=== PATIENT | female | born 1990 | race Caucasian/White ===

== ENCOUNTER 2020-02-25 22:21 | Emergency (ER) | payer BC, SELFPAY ==
[2020-02-25] VITALS (7 sets, daily range): BP systolic 105–135; BP diastolic 67–77; PULSE 63–75; RESP 18–27; TEMP 36.6; O2SAT 94–100
--- NOTE | ~2020-02-25 | CT_ITS ---
EXAMINATION: CT abdomen pelvis w con DATE: 02/26/2020 00:02 INDICATION: Epigastric and right upper quadrant abdominal pain. TECHNIQUE: Computed tomography (CT) of the abdomen and pelvis was performed with 100 mL Omnipaque 350 intravenous contrast. Automated exposure control and iterative reconstruction technique were employe d. The dose-length product was 372.24 mGy-cm. COMPARISON: CT abdomen and pelvis 07/22/2012 FINDINGS: The visualized portions of the lung bases demonstrate mild atelectasis. No pleural effusion . The heart size is normal. No pericardial effusion. The liver and spleen are normal. The gallbladder is normal in size. Gallbladder wall thickening is noted. The pancreas, adrenal glands, and kidneys a re normal. There are no dilated loops of bowel. The appendix is normal. There are no pathologically e nlarged lymph nodes. There is trace pelvic ascites. There is mild lumbar spondylosis. IMPRESSION: 1. Gallbladder wall thickening again seen. This finding may be seen with interstitial edema, chronic liver disease, or acute or chronic cholecystitis. Reviewed, dictated and finalized at location A. [facility] IMPRESSION: 1. Gallbladder wall thickening again seen. This finding may be seen with inters titial edema, chronic liver disease, or acute or chronic cholecystitis.
[2020-02-25] MEDS: fentaNYL CITRATE INJ (*CRX) 100 MCG/2 ML VIAL 50 MCG IV PUSH (22:33)
[2020-02-25] MEDS: ONDANSETRON INJ 4 MG/2 ML VIAL IV PUSH (22:33)
[2020-02-25 22:43] LABS: Basophils Percent Auto 0.1 % (0.2-1.2); Hematocrit 36.9 % (37.0-47.0); Hemoglobin 12.8 g/dL (12.0-15.0); Immature Granulocyte Absolute 0.01 K/mm3 (0.00-0.031); Immature Granulocyte Percent A 0.1 % (0-0.5); Lymphocytes Absolute Auto 3.29 K/mm3 (0.9-3.2); Lymphocytes Percent Auto 47.6 % (18.3-44.2); Mean Corpuscular HGB Conc 34.7 g/dl (32-36); Mean Corpuscular Hemoglobin 29.2 pg (26-34); Mean Corpuscular Volume 84.2 fl (80-100); Mean Platelet Volume 9.7 fl (7.4-10.4); Monocytes Absolute Auto 0.6 K/mm3 (0.1-0.6); Monocytes Percent Auto 8.8 % (2.6-8.5); Neutrophils Percent Auto 43.4 % (45.5-73.1); Platelet Count Result 266 k/mm3 (150-375); Red Blood Count 4.38 M/mm3 (4.2-5.4); Red Cell Distribution Width 12.5 % (11.5-14.5); White Blood Count 6.9 K/mm3 (4.5-10.0)
[2020-02-25 22:56] LABS: Alanine Aminotransferase 30 U/L (4-35); Albumin Level 3.8 g/dL (3.5-5.1); Alkaline Phosphatase 66 U/L (38-126); Anion Gap 5 mmol/L (8-16); Aspartate Amino Transferase 56 U/L (14-36); Bilirubin,Total 0.3 mg/dL (0.2-1.3); Blood Urea Nitrogen 11 mg/dL (7-17); Calcium 8.9 mg/dL (8.4-10.2); Carbon Dioxide 27 mmol/L (22-30); Chloride 108 mmol/L (98-107); Estimated CRCL calculation 134 ml/min; Estimated Glomerular Filt Rate > 60; Glucose 80 mg/dL (65-105); Lipase 86 U/L (23-300); Potassium 3.8 mmol/L (3.4-5.0); Sodium 140 mmol/L (137-145)
[2020-02-25 23:10] LABS: Add Urine Microscopic? YES; Appearance Urine Clear (Clear); Bacteria Urine Trace /hpf; Bilirubin Urine Negative (Negative); Blood Urine 3+ (Negative); Color Urine Yellow (Yellow); Glucose Urine UA Negative (Negative); Ketones Urine Negative (Negative); Leukocyte Esterase Ur Trace LEU/UL (Negative); Mucus Urine Rare /lpf; Nitrate Urine Negative (Negative); Protein Urine Negative (Negative); Specific Grav Ur 1.013 (1.001-1.035); Squamous Epithelial Cell Urine Occasional /hpf (Few); Urobilinogen Urine Negative mg/dL (<2.0)
--- NOTE | 2020-02-25 23:19 | PC.NURSE ---
report given to Kimber RUTH. urine collected. bedside preg done. patient waiting for CT.
--- NOTE | 2020-02-26 00:34 | ED.ABDPAIN ---
HPI - Abdominal Pain General Chief Complaint: Abdominal Pain Stated Complaint: Abd pain, back pain, vomiting Time Seen by Provider: 02/25/20 22:23 History of Present Illness HPI narrative: Patient is a 29-year-old female who presents to the ER with sudden onset upper abdominal pain. Woke her from sleep. Radiates to her back. Endorses nausea and vomiting. No fevers or chills or sweats. Has not had similar symptoms before. No urinary symptoms. No diarrhea. Related Data Home Medications Medication Instructions Recorded Confirmed drospirenone 0.25 mg-estradiol 0.5 PO 03/17/19 mg tablet Allergies Allergy/AdvReac Type Severity Reaction Status Date / Time Cephalosporins Allergy Unknown Hives Verified 02/25/20 22:43 latex Allergy Unknown Hives Verified 02/25/20 22:43 morphine Allergy Unknown Unknown Verified 02/25/20 22:43 Review of Systems Review of Systems: All systems reviewed & are unremarkable except as noted in HPI and below Constitutional: Constitutional: Denies chills, Denies fever(s) and Denies weakness Cardiovascular: Cardiovascular: Denies chest pain and Denies radiating jaw, neck or arm pain Gastrointestinal: Gastrointestinal: Reports abdominal pain, Denies diarrhea, Reports nausea and Reports vomiting Genitourinary: Genitourinary: Denies hematuria, Denies nocturia, Denies dysuria and Denies flank pain Musculoskeletal: Musculoskeletal: Reports back pain and Denies muscle cramps PMFSH Past Medical History Medical History (Updated 02/26/20 @ 01:08 by Johnie Johnson MD) Anxiety Depression Surgical History Surgical History (Updated 02/26/20 @ 00:36 by Johnie Jhonson MD) Hx of tonsillectomy Family History Family History Other Diabetes mellitus Hypertension Social History Social History Smoking status: Former smoker Second hand tobacco smoke exposure: Yes Smoking end date: 03/15/13 Alcohol intake: current Exam Narrative: Exam Narrative: GENERAL: Uncomfortable-appearing, well-nourished, and in no acute distress. HEAD: Normocephalic, atraumatic. CHEST: Clear to auscultation. No respiratory distress. HEART: Regular rate and rhythm. Normal peripheral pulses. ABDOMEN: Soft, tender to palpation in epigastrium right upper quadrant with some guarding right upper quadrant, nondistended. EXTREMITIES: Normal range of motion. No edema. SKIN: Warm, dry, no rash. NEURO:Alert and oriented x3. PSYCH: Normal mood and affect. Course Course Emergency Course: Informed of results. Pain free. Discussed with Dr. Cid. F/u outpt with pain/nausea meds, no abx, low fat diet. Pt verbalized understanding. Vital Signs Vital signs: Vital Signs Temperature 97.9 F 02/25/20 22:25 Pulse Rate 75 02/25/20 22:25 Respiratory Rate 18 02/25/20 22:25 Blood Pressure 135/77 02/25/20 22:25 Pulse Oximetry 99 02/25/20 22:25 Temperature 97.9 F 02/25/20 22:25 Pulse Rate 63 02/25/20 22:46 Respiratory Rate 25 H 02/25/20 22:46 Blood Pressure 105/67 02/25/20 23:16 Pulse Oximetry 100 02/25/20 23:16 MDM - Abdominal Pain Lab Data Result diagrams: 02/25/20 22:36 02/25/20 22:36 Labs: Lab Results 02/25/20 02/25/20 02/25/20 Range/Units 22:36 22:36 23:00 WBC 6.9 (4.5-10.0) K/mm3 RBC 4.38 (4.2-5.4) M/mm3 Hgb 12.8 (12.0-15.0) g/dL Hct 36.9 L (37.0-47.0) % MCV 84.2 (80-100) fl MCH 29.2 (26-34) pg MCHC 34.7 (32-36) g/dl RDW 12.5 (11.5-14.5) % Plt Count 266 (150-375) k/mm3 MPV 9.7 (7.4-10.4) fl Immature Gran % (Auto) 0.1 (0-0.5) % Neut % (Auto) 43.4 L (45.5-73.1) % Lymph % (Auto) 47.6 H (18.3-44.2) % [place] % (Auto) 8.8 H (2.6-8.5) % Eos % (Auto) 0.0 (0-4.4) % Baso % (Auto) 0.1 L (0.2-1.2) % Lymph # (Auto) 3.29 H (0.9-3.2) K/mm3 [place]
[2020-02-26 01:25] VITALS: BP 119/71; PULSE 65; RESP 16; O2SAT 100
== END 2020-02-26 01:25 | disposition home or self-care (01) ==
PROVIDERS: Emergency Provider Emergency Medicine; PCP Family Medicine
DX: K80.50 Calculus of bile duct without cholangitis or cholecystitis without obstruction (principal); Z87.891 Personal history of nicotine dependence
CPT/HCPCS: 36415; 74177; 80053; 81001; 81025; 83690; 85025; 87086; 87088; 96374; 96375; 99284; J2405; J3010; Q9967

== ENCOUNTER → 2020-03-06 07:44 | Outpatient (CLI) | payer BC, SELFPAY ==
--- NOTE | ~2020-03-06 | US_ITS ---
EXAMINATION: US abdomen limited EXAM DATE: 03/06/2020 08:19 INDICATION: K81.0 - Acute cholecystitis . TECHNIQUE: Multiple grayscale and Doppler images of the abdomen right upper quadrant were obtained (b y a technologist who performed the scan) and subsequently reviewed. There is no prior study for robinson tinajero. FINDINGS: The pancreatic head and body are normal in appearance. The pancreatic tail is not visualized. The l iver has normal echogenicity and contour. There are no focal liver lesions identified. There is no evidence of intrahepatic biliary duct dilation. Portal venous flow was seen in the hepatopedal, nor mal direction and has normal Doppler waveform. No right-sided hydronephrosis. Common bile duct measures 4 mm, which is normal. The gallbladder wall is normal in thickness, with ex pected amount of distention. No sonographic evidence of pericholecystic fluid. Multiple small galls tones. Technologist performing exam reports patient did not demonstrate sonographic Clark's sign. Please note that this sign is less reliable in patients who have received pain medication. IMPRESSION: Cholelithiasis. Reviewed, dictated and finalized at location B. [facility] IMPRESSION: Cholelithiasis.
== END ==
PROVIDERS: PCP Family Medicine; Visit Provider Surgery
DX: K80.50 Calculus of bile duct without cholangitis or cholecystitis without obstruction (principal)
CPT/HCPCS: 76705

== ENCOUNTER 2020-03-11 08:22 | Outpatient (CLI) | payer BC, SELFPAY ==
[2020-03-11 08:59] LABS: Alanine Aminotransferase 25 U/L (4-35); Alkaline Phosphatase 60 U/L (38-126); Amylase 73 U/L (30-110); Anion Gap 8 mmol/L (8-16); Aspartate Amino Transferase 26 U/L (14-36); Bilirubin,Total 0.5 mg/dL (0.2-1.3); Blood Urea Nitrogen 10 mg/dL (7-17); Calcium 8.6 mg/dL (8.4-10.2); Carbon Dioxide 25 mmol/L (22-30); Chloride 105 mmol/L (98-107); Estimated Glomerular Filt Rate > 60; Glucose 92 mg/dL (65-105); Lipase 58 U/L (23-300); Potassium 4.1 mmol/L (3.4-5.0); Sodium 138 mmol/L (137-145)
== END 2020-03-11 08:23 | disposition home or self-care (01) ==
LOC: ANHSURGERY 08:24
PROVIDERS: PCP Family Medicine; Visit Provider Surgery
DX: Z01.812 Encounter for preprocedural laboratory examination (principal); K81.0 Acute cholecystitis
CPT/HCPCS: 36415; 80053; 82150; 82248; 83690; 86850; 86900; 86901

== ENCOUNTER 2020-03-15 00:49 | Outpatient (CLI) | payer BC, SELFPAY ==
[2020-03-15 18:38] LABS: SARS-CoV-2 RNA PCR Negative
== END 2020-03-15 00:50 | disposition home or self-care (01) ==
LOC: ANHCOVIDDT 00:49
PROVIDERS: PCP Family Medicine; Visit Provider Surgery
DX: Z01.818 Encounter for other preprocedural examination (principal); Z20.828 Contact with and (suspected) exposure to other viral communicable diseases
CPT/HCPCS: C9803; U0003

== ENCOUNTER 2020-03-18 01:31 | Day surgery (SDC) | payer BC, SELFPAY ==
[2020-03-05 10:13] VITALS: BMI 28.7
[2020-03-18] VITALS (8 sets, daily range): BP systolic 97–127; BP diastolic 54–75; PULSE 56–92; RESP 14–16; TEMP 36.2–36.6; O2SAT 99–100; BMI 28.4
[2020-03-18] MEDS: LACTATED RINGERS 1,000 ML 30 ML IV CONT ×2 (07:21→10:14)
[2020-03-18] MEDS: ACETAMINOPHEN 500 MG TABLET 1000 MG PO (07:38)
[2020-03-18] MEDS: KETOROLAC 15 MG/ML VIAL (*BKC) IV PUSH (07:38)
--- NOTE | 2020-03-18 07:52 | WPDANESEPPF ---
Anes - Initial Pre Proc Eval Procedure: Operation Date: 03/18/20 09:00 Proposed Procedures p Laparoscopic Cholecystectomy Possible Open - Ignacio Cid DO Date/Time: 03/18/20 07:52 Surgeon: Ignacio Cid DO Pre Op Diagnosis: Acute Cholecystitis Patient Data Age: 29 Gender: F Height: 5 ft 2 in Weight: 70.6 kg Last Vital Signs Temp 36.6 C 03/18/20 07:48 Pulse 92 03/18/20 07:48 Resp 16 03/18/20 07:48 BP 99/66 L 03/18/20 07:48 Pulse Ox 100 03/18/20 07:48 Allergies Allergy/AdvReac Type Severity Reaction Status Date / Time latex Allergy Severe Swelling Verified 03/18/20 07:23 of Lip/Tongue/Throat morphine Allergy Unknown Unknown Verified 03/18/20 07:23 Home Medications Medication Instructions Recorded Confirmed Type drospirenone 0.25 mg-estradiol 0.5 1 tablet PO DAILY 03/17/19 03/18/20 History mg tablet alprazolam 0.5 mg tablet 0.5 mg PO TID PRN #60 tablet 08/08/19 03/18/20 Rx venlafaxine 225 mg tablet,extended 225 mg PO DAILY #90 tablet 01/10/20 03/18/20 Rx release 24 hr Patient hx anesthesia problems: none Family hx anesthesia problems: none PMFSH Past Medical History Medical History Anxiety Depression History of asthma Surgical History Surgical History History of foot surgery club foot History of tonsillectomy and adenoidectomy Family History Family History Mother Diabetes mellitus Hypertension Family history of breast cancer Social History Social History Smoking status: Never smoker Tobacco type: cigarettes Second hand tobacco smoke exposure: Yes Smoking end date: 03/15/13 Alcohol intake: current Living arrangements: with family 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 Spiritual care concerns: No Anes - Eval Final PreProcedure Day of Procedure 03/18/20 07:52 Patient weight: overweight Heart: regular rate and rhythm Lungs: clear to auscultation Airway: Mallampati scale class II Neurological: alert and oriented Last oral intake: >/= 8 hours ASA classification: II Emergent: no Anesthetic plan: proceed Anesthesia type and monitoring: general ETT and standard monitoring Other findings: latex rxn w/balloons - eyes, tongue/lip swelling -ER - no intubation Informed Consent: The patient's anesthetic plan and its attendant risks and benefits were discussed with the patient/family/POA. Questions were solicited and answers provided to the satisfaction of the patient/family/POA.
--- NOTE | 2020-03-18 08:31 | WPDHPUPDATE1 ---
History and Physical Update Update Date/Time: 03/18/20 08:31 History and Physical has been reviewed, including an updated exam of the patient. There are NO changes in the patient's condition. Risks, benefits, and alternatives have been discussed and questions answered. Patient agrees to proceed with procedure.
--- NOTE | 2020-03-18 10:05 | PM.PROC ---
Procedure Note - Detailed Date of procedure: 03/18/20 Pre-op diagnosis: Acute Cholecystitis Post-op diagnosis: same Procedure performed: Laparoscopic Cholecystectomy Description of procedure: Procedure as well as risks, benefits, and alternatives were discussed with patient. Written consent was obtained and placed in chart prior to procedure. The patient was brought back to surgical suite. Patient was placed in supine position on operating table. Time-out was done to confirm patient and procedure. Patient was then intubated by the anesthesia department. Abdomen was prepped and draped in sterile fashion using chlorhexidine prep. 0.5% bupivacaine with epinephrine was infiltrated at each site of incision. An 11 millimeter vertical incision was made at the inferior portion of the umbilicus using a 15 blade scalpel. Blunt dissection was carried down to the linea alba. The linea alba was then incised using a 15 blade scalpel. The peritoneum was then bluntly entered. An 11 millimeter trocar was inserted and cabon dioxied insuflation was used to create a pneumoperitoneum. The camera was inserted and the abdomen was inspected. The patient was placed in reverse Trendelenberg position and rotated slightly to the left. A 5 millimeter incision was made in the epigastric region, and a 5 millimeter trocar was inserted under direct visualization. Two 5 millimeter incisions were made in the right upper quadrant, and two 5 millimeter trocars were inserted under direct visualization. The gallbladder was identified and grasped at the fundus and retracted superiorly. It was then grasped at the infundibulum retracted laterally. Careful dissection around the neck of the gallbladder was performed using blunt dissection with a [place] grasper and hook electrocautery. The cystic duct was identified, and a window was created behind it. The cystic artery was also identified and a window was created behind it. The critical view of safety was identified, visualizing the cystic duct running directly into the neck of the gallbladder, and the cystic artery running directly into the wall of the gallbladder. A 5 millimeter clip em physician was then used to place 2 clips proximally and 1 clip distally on both the cystic duct and cystic artery. They were then both transected using endoscopic scissors. Once safely away from the ryne hepatitis, the gallbladder was dissected free from the liver bed using hook electrocautery. Hemostasis was achieved along the way. The gallbladder was removed completely and then removed through the umbilical port. The liver bed was then inspected. Hemostasis appeared adequate, and our clips appeared secure. The area was gently irrigated with sterile saline. No other abnormalities were seen. The patient was flattened out in bed, and 1 final inspection was made around the abdominal cavity. The ports were then removed under direct visualization, the camera was removed, and the pneumoperitoneum was released. The fascia of the umbilical incision was approximated using an 0 Vicryl [id number] suture. The skin of the incisions was approximated using 4-0 Monocryl subcuticular sutures. Exofin glue was applied on top. The patient was then awakened from anesthesia, extubated, and transferred to recovery. Anesthesia: GETA and local (0.5% bupivicaine with epinephrine) Surgeon: Ignacio Cid DO Estimated blood loss (mL): 5 Pathology: yes (gallbladder) Complications: No immediate complications Condition: stable Disposition: same day Findings: Char is a 29 y/o female who presented with RUQ abdominal pain for the past month. She presented to [facility] ER on 02/26/20 with upper abdominal pain and associated nausea and vomiting. She reports eating a cheese pizza the night prior. She states the pain woke her from sleeping. The pain radiates to her back. She denies fevers, chills, sweats, urinary symptoms, and diarrhea. She has had episodes similar to this in the pa
[2020-03-18] MEDS: ONDANSETRON INJ 4 MG/2 ML VIAL IV PUSH (11:26)
--- NOTE | 2020-03-18 11:26 | SUR.PHASEII ---
1127- ice pack applied to abdomen. c/o brief episode of nausea. mediated for same.
== END 2020-03-18 11:40 | disposition home or self-care (01) ==
PROVIDERS: PCP Family Medicine; Visit Provider Surgery
PROC: 0FT44ZZ Resection of Gallbladder, Percutaneous Endoscopic Approach (ICD-10-PCS; CPT 47562; principal; 2020-03-18 09:00)
DX: K80.10 Calculus of gallbladder with chronic cholecystitis without obstruction (principal); F41.8 Other specified anxiety disorders
CPT/HCPCS: 47562; 36415; 80053; 82150; 82248; 83690; 86850; 86900; 86901; 88304; A9270; C9803; J0330; J1100; J1170; J1200; J1885; J2250; J2405; J2704; J2710; J7030; J7120; U0003

== ENCOUNTER 2024-08-18 09:16 | Outpatient (RCR) | payer OTHER, SELFPAY ==
[2024-08-19] MEDS: RHO(D) IMMUNE GLOBULIN 300 MCG/2 ML SYRINGE IM (11:12)
== END 2024-11-16 23:59 | disposition home or self-care (01) ==
LOC: ANHLAB 09:16
PROVIDERS: PCP Family Medicine; Visit Provider Obstetrics & Gynecology
DX: O36.0990 Maternal care for other rhesus isoimmunization, unspecified trimester, not applicable or unspecified (principal); Z3A.00 Weeks of gestation of pregnancy not specified
CPT/HCPCS: 36415; 85461; 86850; 86900; 86901; 90384; 96372; J2790

== ENCOUNTER 2024-10-04 08:45 | Outpatient (CLI) | payer OTHER, SELFPAY ==
--- OUTSIDE RECORDS SUMMARY | 2024-10-04 09:01 | XMS_ITS | Referral Summary ---
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 Gender Identity Not on file Sexual Orientation Not on file Last Filed Vital Signs Vital Sign Reading Time Taken Comments Blood Pressure 102/68 07/07/2023 8:24 AM CDT Pulse 60 07/07/2023 8:24 AM CDT Temperature 36.4 C (97.5 F) 07/07/2023 8:24 AM CDT Respiratory Rate 20 07/07/2023 8:24 AM CDT Oxygen Saturation 96% 07/07/2023 8:24 AM CDT Inhaled Oxygen Concentration - - Weight 86.3 kg (190 lb 3.2 oz) 07/07/2023 7:56 A M CDT Height - - Body Mass Index - - Plan of Treatment Not on file Insurance [facility] [place] [address] [place] [address] Care Teams Ep Technologist Relationship Specialty Start Date End Date Maday Jade MD PCP - General Family Medicine 04/06/24
--- OUTSIDE RECORDS SUMMARY | 2024-10-04 09:01 | XMS_ITS | Clinical Summary ---
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 Gender Identity Not on file Sexual Orientation [...] Mass Index - - Plan of Treatment Health Maintenance Due Date Last Done Comments Cervical Cancer Screening 1992 Depression Screening 1992 Hepatitis C Screening 1992 Varicella Vaccines (1 of 2 - 13+ 2-dose series) 2005 Regular Well Visit/Exam 18-64 2010 HPV Vaccines (3 - 3-dose series) 02/08/2011 10/09/2010, 08/08/2010 Covid-19 Vaccine ( - season) 2023 06/04/2020, 05/14/2020 DTaP/Tdap/Td Vaccine (3 - Td or Tdap) 08/25/2028 08/25/2018, 09/23/2006 Hepatitis B Screening Completed 04/18/1993 , 1992, 1992 Influenza Vaccine Completed 12/21/2023, , 01/22/2022, Additional history exists Pneumococcal vaccine <65 Aged Out No longer eligible based on patient's age to complete this topic Insurance [facility] [employer] [place] H[place]/PPO Address: [facility] [id number] [place] [id number] Care Teams Customs Brokerage Manager Relationship Specialty Start Date End Date Maday Jade MD PCP - General Family Medicine 04/06/24
[2024-10-04 09:10] VITALS: BMI 39.5
[2024-10-04 09:16] VITALS: BP 123/70; PULSE 69
[2024-10-04 09:18] LABS: Hematocrit 33.6 % (37.0-47.0); Hemoglobin 11.5 g/dL (12.0-15.0); Immature Granulocyte Percent A 0.9 % (0-0.5); Lymphocytes Absolute Auto 1.21 K/mm3 (0.9-3.2); Mean Corpuscular HGB Conc 34.2 g/dl (32-36); Mean Corpuscular Hemoglobin 29.7 pg (26-34); Mean Corpuscular Volume 86.8 fl (80-100); Nucleated Red Blood Cells Absolute Auto 0.000 K/mm3 (0.0-0.012); Nucleated Red Blood Cells Perc 0.0 % (0.0-0.2); Platelet Count Result 232 k/mm3 (150-375); Red Blood Count 3.87 M/mm3 (4.2-5.4); White Blood Count 10.2 K/mm3 (4.5-10.0)
[2024-10-04 09:27] LABS: Add Urine Microscopic? YES; Appearance Urine Clear (Clear); Glucose Urine UA Negative (Negative); Leukocyte Esterase Ur 2+ LEU/UL (Negative); Nitrate Urine Negative (Negative); Non Pathogenic Casts 0-2; Specific Grav Ur 1.006 (1.001-1.035)
[2024-10-04 09:31] VITALS: BP 122/73; PULSE 67
[2024-10-04 09:34] LABS: Total Protein Urine Random 11 mg/dL; Ur Ttl Prot Creatinine Ratio 0.32 mg/mg (0-0.20)
[2024-10-04 09:43] LABS: Alanine Aminotransferase 16 U/L (6-35); Albumin Level 3.2 g/dL (3.5-5.1); Alkaline Phosphatase 117 U/L (38-126); Anion Gap 5 mmol/L (4-12); Aspartate Amino Transferase 23 U/L (14-36); Bilirubin,Total 0.2 mg/dL (0.2-1.3); Blood Urea Nitrogen 3 mg/dL (7-17); Calcium 8.7 mg/dL (8.4-10.2); Carbon Dioxide 21 mmol/L (22-30); Chloride 107 mmol/L (98-107); Estimated Glomerular Filt Rate > 60; Glucose 90 mg/dL (65-110); Potassium 3.7 mmol/L (3.4-5.0); Sodium 133 mmol/L (137-145); Total Protein 6.2 g/dL (6.3-8.2); Uric Acid 2.8 mg/dL (2.5-7.5)
[2024-10-04 09:46] VITALS: BP 115/68; PULSE 69
== END 2024-10-04 09:55 | disposition home or self-care (01) ==
LOC: ANHOBOP 08:49 → ANHOBPP 08:52
PROVIDERS: Obstetrics & Gynecology; PCP Family Medicine; Visit Provider Obstetrics & Gynecology
DX: O13.9 Gestational [pregnancy-induced] hypertension without significant proteinuria, unspecified trimester (principal); Z3A.00 Weeks of gestation of pregnancy not specified
CPT/HCPCS: 36415; 59025; 80053; 81001; 82570; 84156; 84550; 85025; 87086; 99199

== ENCOUNTER 2024-10-25 11:06 | Outpatient (CLI) | payer OTHER, SELFPAY ==
[2024-10-25] VITALS (7 sets, daily range): BP systolic 115–133; BP diastolic 64–86; PULSE 68–95; BMI 40.3
--- OUTSIDE RECORDS SUMMARY | 2024-10-25 11:18 | XMS_ITS | Clinical Summary ---
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 Gender Identity Not on file Sexual Orientation [...] Vaccine ( - season) 2023 06/04/2020, 05/14/2020 Influenza Vaccine (#1) 2024 , 01/08/2023, 01/22/2022, Additional history exists DTaP/Tdap/Td Vaccine (3 - Td or Tdap) 08/25/2028 08/25/2018, 09/23/2006 Hepatitis B Screening Completed 04/18/1993 , 1992, 1992 Pneumococcal vaccine <65 Aged Out No longer eligible based on patient's age to complete this topic Insurance [facility] [employer] [facility] H[facility]/PPO Address: [facility] [address] [place] [address] Care Teams Medical Technologist Chief Relationship Specialty Start Date End Date Maday Jade MD PCP - General Family Medicine 04/06/24
[2024-10-25 11:48] LABS: Hematocrit 34.2 % (37.0-47.0); Hemoglobin 11.3 g/dL (12.0-15.0); Immature Granulocyte Percent A 0.9 % (0-0.5); Lymphocytes Absolute Auto 1.40 K/mm3 (0.9-3.2); Mean Corpuscular HGB Conc 33.0 g/dl (32-36); Mean Corpuscular Hemoglobin 28.8 pg (26-34); Mean Corpuscular Volume 87.0 fl (80-100); Nucleated Red Blood Cells Absolute Auto 0.000 K/mm3 (0.0-0.012); Nucleated Red Blood Cells Perc 0.0 % (0.0-0.2); Platelet Count Result 267 k/mm3 (150-375); Red Blood Count 3.93 M/mm3 (4.2-5.4); White Blood Count 9.3 K/mm3 (4.5-10.0)
[2024-10-25 11:58] LABS: Alanine Aminotransferase 15 U/L (6-35); Albumin Level 3.4 g/dL (3.5-5.1); Alkaline Phosphatase 148 U/L (38-126); Anion Gap 6 mmol/L (4-12); Aspartate Amino Transferase 23 U/L (14-36); Bilirubin,Total 0.4 mg/dL (0.2-1.3); Blood Urea Nitrogen 4 mg/dL (7-17); Calcium 8.7 mg/dL (8.4-10.2); Carbon Dioxide 19 mmol/L (22-30); Chloride 109 mmol/L (98-107); Estimated CRCL calculation 170 ml/min; Estimated Glomerular Filt Rate > 60; Glucose 73 mg/dL (65-110); Potassium 4.0 mmol/L (3.4-5.0); Sodium 134 mmol/L (137-145); Total Protein 6.4 g/dL (6.3-8.2); Uric Acid 3.3 mg/dL (2.5-7.5)
[2024-10-25 12:03] LABS: Add Urine Microscopic? YES; Appearance Urine Clear (Clear); Glucose Urine UA Negative (Negative); Leukocyte Esterase Ur 2+ LEU/UL (Negative); Nitrate Urine Negative (Negative); Non Pathogenic Casts 0-2; Specific Grav Ur 1.016 (1.001-1.035)
[2024-10-25 12:15] LABS: Total Protein Urine Random < 5 mg/dL; Ur Ttl Prot Creatinine Ratio < 0.06 mg/mg (0-0.20)
== END 2024-10-25 12:42 | disposition home or self-care (01) ==
LOC: ANHOBOP 11:10 → ANHOBPP 11:11
PROVIDERS: PCP Family Medicine; Visit Provider Obstetrics & Gynecology
DX: O13.9 Gestational [pregnancy-induced] hypertension without significant proteinuria, unspecified trimester (principal); Z3A.00 Weeks of gestation of pregnancy not specified
CPT/HCPCS: 36415; 59025; 80053; 81001; 82570; 84156; 84550; 85025; 99199

== ENCOUNTER 2024-10-27 02:52 | Inpatient (IN) | payer OTHER, SELFPAY ==
[2024-10-27] VITALS (240 sets, daily range): BP systolic 78–169; BP diastolic 42–136; PULSE 56–174; RESP 16–20; TEMP 36.1–37.7; O2SAT 87–100; BMI 41.6
--- OUTSIDE RECORDS SUMMARY | 2024-10-27 05:15 | XMS_ITS | Clinical Summary ---
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
--- NOTE | 2024-10-27 05:35 | LDADM ---
This patient, Char Wynne, was admitted to Labor/Delivery/Recovery 104 on 10/27/24 at 02:52. Plans for labor, pain management and were discussed with patient. Patient/family oriented to hospital policies and general routines including ID bracelet, bed and alarms, visiting hours, pain management, procedures, bathroom and other care routines, personal items, smoking policy, room service/diet and guest tray routines, infant security routines, and visiting hours. Patient/Family are encouraged to report perceived risks to care and to ask questions if they do not understand what they are told or what they should do. See OBIX for further documentation.
[2024-10-27 06:01] LABS: Alanine Aminotransferase 14 U/L (6-35); Albumin Level 3.3 g/dL (3.5-5.1); Alkaline Phosphatase 152 U/L (38-126); Anion Gap 7 mmol/L (4-12); Aspartate Amino Transferase 22 U/L (14-36); Bilirubin,Total 0.4 mg/dL (0.2-1.3); Blood Urea Nitrogen 5 mg/dL (7-17); Calcium 9.0 mg/dL (8.4-10.2); Carbon Dioxide 20 mmol/L (22-30); Chloride 107 mmol/L (98-107); Estimated CRCL calculation 167 ml/min; Estimated Glomerular Filt Rate > 60; Glucose 84 mg/dL (65-110); Potassium 3.7 mmol/L (3.4-5.0); Sodium 134 mmol/L (137-145); Total Protein 6.1 g/dL (6.3-8.2)
[2024-10-27 06:02] LABS: Hematocrit 38.2 % (37.0-47.0); Hemoglobin 13.0 g/dL (12.0-15.0); Immature Granulocyte Percent A 1.0 % (0-0.5); Lymphocytes Absolute Auto 1.66 K/mm3 (0.9-3.2); Mean Corpuscular HGB Conc 34.0 g/dl (32-36); Mean Corpuscular Hemoglobin 29.5 pg (26-34); Mean Corpuscular Volume 86.8 fl (80-100); Nucleated Red Blood Cells Absolute Auto 0.000 K/mm3 (0.0-0.012); Nucleated Red Blood Cells Perc 0.0 % (0.0-0.2); Platelet Count Result 231 k/mm3 (150-375); Red Blood Count 4.40 M/mm3 (4.2-5.4); White Blood Count 9.9 K/mm3 (4.5-10.0)
--- NOTE | 2024-10-27 06:22 | P.PNAN_ITS ---
Anes - Eval Pre Procedure Procedure: Labor epidural Date/Time: 10/27/24 06:22 Surgeon: Jada Preop Diagnosis: Abdominal pain with contractions Pre Op Diagnosis: Leaking Patient Data Age: 34 Gender: F Height: 1.55 m Weight: 100 kg Last Vital Signs Temp 97.9 F 10/27/24 06:00 Pulse 81 10/27/24 06:01 Resp 18 10/27/24 06:00 BP 126/90 10/27/24 06:01 O2 Del Method Room Air 10/27/24 05:39 Allergies Allergy/AdvReac Type Severity Reaction Status Date / Time latex Allergy Severe Swelling Verified 10/25/24 11:22 of Lip/Tongue/Throat morphine Allergy Unknown Unknown Verified 10/25/24 11:22 Home Medications ?Medication ?Instructions ?Recorded ?Confirmed ?Type epinephrine 0.3 mg/0.3 mL 0.3 mg (0.3 mL) IM ONCE #2 ea 07/03/24 10/25/24 Rx injection, auto-injector (EpiPen 2-Semaj) cetirizine 10 mg capsule (Zyrtec) 10 mg PO DAILY PRN allergy symptoms 09/12/24 10/25/24 History docosahexaenoic acid 200 mg mg PO 09/12/24 10/25/24 History capsule ( DHA) fluoxetine 20 mg capsule 20 mg PO DAILY #90 caps 09/17/24 10/25/24 Rx Laboratory Tests 10/27/24 03:30 WBC 9.9 K/mm3 (4.5-10.0) RBC 4.40 M/mm3 (4.2-5.4) Hgb 13.0 g/dL (12.0-15.0) Hct 38.2 % (37.0-47.0) MCV 86.8 fl (80-100) MCH 29.5 pg (26-34) MCHC 34.0 g/dl (32-36) RDW 13.3 % (11.5-14.5) Plt Count 231 k/mm3 (150-375) MPV 10.7 H fl (7.4-10.4) Immature Gran % (Auto) 1.0 H % (0-0.5) Neut % (Auto) 76.1 H % (45.5-73.1) Lymph % (Auto) 16.8 L % (18.3-44.2) [place] % (Auto) 6.0 % (2.6-8.5) Eos % (Auto) 0.0 % (0-4.4) Baso % (Auto) 0.1 L % (0.2-1.2) Lymph # (Auto) 1.66 K/mm3 (0.9-3.2) [place] # (Auto) 0.6 K/mm3 (0.1-0.6) Eos # (Auto) 0.0 K/mm3 (0-0.3) Baso # (Auto) 0.0 K/mm3 (0.0-0.1) Abs Immat Gran (auto) 0.10 H K/mm3 (0.00-0.031) Absolute Neuts (auto) 7.5 H K/mm3 (1.3-6.7) Absolute Nucleated RBC 0.000 K/mm3 (0.0-0.012) Nucleated RBC % 0.0 % (0.0-0.2) Sodium 134 L mmol/L (137-145) Potassium 3.7 mmol/L (3.4-5.0) Chloride 107 mmol/L (98-107) Carbon Dioxide 20 L mmol/L (22-30) Anion Gap 7 mmol/L (4-12) BUN 5 L mg/dL (7-17) Creatinine 0.43 L mg/dL (0.7-1.0) Estim Creat Clear Calc 167 ml/min Estimated GFR > 60 (59 - ) Glucose 84 mg/dL (65-110) Calcium 9.0 mg/dL (8.4-10.2) Total Bilirubin 0.4 mg/dL (0.2-1.3) AST 22 U/L (14-36) ALT 14 U/L (6-35) Alkaline Phosphatase 152 H U/L (38-126) Total Protein 6.1 L g/dL (6.3-8.2) Albumin 3.3 L g/dL (3.5-5.1) Blood Type O Negative Antibody Screen Positive Antibody Identification Pending Antigen Identification Pending LARA, IgG Interpret Not Performed LARA, Poly Interpret Neg LARA, Complement Interp Not Performed : gestational age HCG: positive Patient hx anesthesia problems: none Family hx anesthesia problems: none Results Review: All pre-operative results and documents have been reviewed as part of the pre- operative evaluation. [facility] Past Medical History Medical History (Updated 10/27/24 @ 06:23 by Chilango Fine Jr., CRNA) Morbid obesity and not yet delivered History of asthma Anxiety Depression Surgical History Surgical History Hx laparoscopic cholecystectomy 03/18/20 History of foot surgery club foot History of tonsillectomy and adenoidectomy Family History Family History Mother Diabetes mellitus Hypertension Family history of breast cancer Father Hypertension Social History Social History Smoking status: Never smoker Tobacco type: cigarettes Second hand tobacco smoke exposure: No Smoking end date: 03/15/13 Alcohol intake: current Alcohol use details: seldom; socially Substance use: never Substance use type: does not use Do You Feel Safe in your Home?: Yes Lack of Transportation: No Lack of Food: Never True Current Housing: I Have Housing Concerned About Future Housing: No Difficulty Paying Gas/Electric Bills: No Difficulty Paying for Meds: No Currently Unemployed: No Education: High School Diploma/GED Difficulty w/ Childcare or Family Care: No Living arrangements: with family Occupation/Education: occupation 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
[2024-10-27] MEDS: OXYTOCIN 30 UNITS/NS 500 ML 30 UNITS/500 ML BAG IV CONT (08:08)
[2024-10-27] MEDS: LACTATED RINGERS 1,000 ML 125 ML IV CONT ×2 (08:08→18:06)
--- NOTE | 2024-10-27 08:39 | P.HP_ITS ---
H&P: HPI History of Present Illness Date/Time: 10/27/24 08:39 Chief Complaint: Leaking of fluid Narrative: 34 y/o G1 at 37 weeks with an EDC 11/11/24 admitted for confirmed SROM at 0220. Clear. Irregular contractions. Cervix dilated to 1. PNC significant for isolated increased blood pressure, normal PIH today. Denies headache, scotomata or RUQ pain. Review of Systems Review of Systems: All systems reviewed & are unremarkable except as noted in HPI and below Constitutional: Constitutional: Reports no additional constitutional complaints and Denies headache(s) Eyes: Eyes: Denies spots in vision ENT: Reports system reviewed and no additional complaints, except as documented and Denies headache(s) Cardiovascular: Cardiovascular: Denies chest pain and Denies dyspnea Respiratory: Respiratory: Denies dyspnea Gastrointestinal: Gastrointestinal: Reports no additional gastrointestinal complaints Genitourinary: Genitourinary: Reports amenorrhea Musculoskeletal: Musculoskeletal: Reports no additional musculoskeletal complaints Integumentary/Breasts: Skin/Breast: Denies breast mass and Denies rash Neurologic: Denies headache(s) Psychiatric: Psychiatric: Reports no additional psychiatric complaints [facility] Past Medical History Medical History (Updated 10/27/24 @ 21:52 by Alfred Glover MD) Morbid obesity and not yet delivered History of asthma Anxiety Depression Surgical History Surgical History Hx laparoscopic cholecystectomy 03/18/20 History of foot surgery club foot History of tonsillectomy and adenoidectomy Family History Family History Mother Diabetes mellitus Hypertension Family history of breast cancer Father Hypertension Social History Social History Smoking status: Never smoker Tobacco type: cigarettes Second hand tobacco smoke exposure: No Smoking end date: 03/15/13 Alcohol intake: current Alcohol use details: seldom; socially Substance use: never Substance use type: does not use Do You Feel Safe in your Home?: Yes Lack of Transportation: No Lack of Food: Never True Current Housing: I Have Housing Concerned About Future Housing: No Difficulty Paying Gas/Electric Bills: No Difficulty Paying for Meds: No Currently Unemployed: No Education: High School Diploma/GED Difficulty w/ Childcare or Family Care: No Living arrangements: with family Occupation/Education: occupation Additional occupation/education comments: Issue Clerk Gender identity (if verbalized by the patient): Female Spiritual care concerns: No Meds Home Medications and Allergies Home Medications ?Medication ?Instructions ?Recorded ?Confirmed ?Type epinephrine 0.3 mg/0.3 mL 0.3 mg (0.3 mL) IM ONCE #2 ea 07/03/24 10/25/24 Rx injection, auto-injector (EpiPen 2-Semaj) cetirizine 10 mg capsule (Zyrtec) 10 mg PO DAILY PRN allergy symptoms 09/12/24 10/25/24 History docosahexaenoic acid 200 mg mg PO 09/12/24 10/25/24 History capsule ( DHA) fluoxetine 20 mg capsule 20 mg PO DAILY #90 caps 09/17/24 10/25/24 Rx Allergies Allergy/AdvReac Type Severity Reaction Status Date / Time latex Allergy Severe Swelling Verified 10/25/24 11:22 of Lip/Tongue/Throat morphine Allergy Unknown Unknown Verified 10/25/24 11:22 Vital Signs Vital Signs - 24 hr 10/27/24 04:00 10/27/24 04:10 10/27/24 05:31 Temperature 98.2 F 97.3 F L Pulse Rate 72 Respiratory Rate 18 18 Blood Pressure 115/78 Oxygen Delivery 10/27/24 05:39 10/27/24 06:00 10/27/24 06:01 Temperature 97.9 F Pulse Rate 81 Respiratory Rate 18 Blood Pressure 126/90 Oxygen Delivery Room Air 10/27/24 07:13 10/27/24 07:31 10/27/24 08:01 Temperature Pulse Rate 88 86 82 Respiratory Rate Blood Pressure 128/71 143/83 H 137/84 Oxygen Delivery 10/27/24 08:31 Temperature Pulse Rate 80 Respiratory Rate Blood Pressure 119/88 Oxygen Delivery Exam Const: General: no acute distress Eyes: General: appearance normal, both eyes and all related structures Resp: Effort & Inspection: normal respiratory effort Cardio: Rate: regular rate GI: Other: Gravid no fundal tenderness no right upper quadrant pain Skin: General skin exam: no rashes or lesions noted Neuro: Cognition (Neuro): normal cognition Extrem: General: normal to inspection Psych: Mental Status: mental status grossly normal H&P: Results Labs Labs: Short CBC 10/27/24 Range/Units 03:30 WBC 9.9 (4.5-10.0) K/mm3 Hgb 13.0 (12.0-15.0) g/dL Hct 38.2 (37.0-47.0) % Plt Count 231 (150-375) k/mm3 BMP 10/27/24 03:30 Sodium 134 L Potassium 3.7 Chloride 107 Carbon Dioxide 20 L BUN 5 L Creatinine 0.43 L Glucose 84 Calcium 9.0 Liver Function 10/27/24 Range/Units 03:30 Total Bilirubin 0.4 (0.2-1.3) mg/dL AST 22 (14-36) U/L ALT 14 (6-35) U/L Alkaline Phosphatase 152 H (38-126) U/L Albumin 3.3 L (3.5-5.1) g/dL Assessment and Plan Assessment and plan (1) Spontaneous rupture of membranes: Status: Acute Assessment and Plan: 1. Admit 2. Pitocin augmentation.
--- NOTE | 2024-10-27 08:40 | PM.OBPNVD ---
OB - PN: Subj Subjective Date/time seen: 10/27/24 08:40 Interval history: fht 125, cat 2, fht 125, no PIH symptoms. Continue pitocin. OB - PN: Obj Data Labs 10/27/24 03:30 10/27/24 03:30 Labs: Laboratory Results - last 24 hr 10/27/24 03:30 WBC 9.9 RBC 4.40 Hgb 13.0 Hct 38.2 MCV 86.8 MCH 29.5 MCHC 34.0 RDW 13.3 Plt Count 231 MPV 10.7 H Immature Gran % (Auto) 1.0 H Neut % (Auto) 76.1 H Lymph % (Auto) 16.8 L [place] % (Auto) 6.0 Eos % (Auto) 0.0 Baso % (Auto) 0.1 L Lymph # (Auto) 1.66 [place] # (Auto) 0.6 Eos # (Auto) 0.0 Baso # (Auto) 0.0 Abs Immat Gran (auto) 0.10 H Absolute Neuts (auto) 7.5 H Absolute Nucleated RBC 0.000 Nucleated RBC % 0.0 Sodium 134 L Potassium 3.7 Chloride 107 Carbon Dioxide 20 L Anion Gap 7 BUN 5 L Creatinine 0.43 L Estim Creat Clear Calc 167 Estimated GFR > 60 Glucose 84 Calcium 9.0 Total Bilirubin 0.4 AST 22 ALT 14 Alkaline Phosphatase 152 H Total Protein 6.1 L Albumin 3.3 L Blood Type O Negative Antibody Screen Positive Antibody Identification Passive Due to RH Imm Glob Antigen Identification Not Reportable LARA, IgG Interpret Not Performed LARA, Poly Interpret Neg LARA, Complement Interp Not Performed OB - PN A/P Time Spent With Patient Time: Total time spent is greater than 50% in coordination of care (as documented) at patient's floor/unit and/or counseling patient:
[2024-10-27] MEDS: ONDANSETRON INJ 4 MG/2 ML VIAL IV PUSH ×2 (09:18→18:07)
[2024-10-27] MEDS: fentaNYL CITRATE INJ (*CRX) 100 MCG/2 ML VIAL 50 MCG IV PUSH ×2 (09:41→10:49)
[2024-10-27] MEDS: LACTATED RINGERS 1,000 ML 999 ML IV CONT (11:04)
[2024-10-27 15:19] LABS: Syphilis IgG/IgM Antibody 0.03 S/C; Syphilis IgG/IgM Antibody Non-Reactive (Nonreactive)
[2024-10-27] MEDS: CALCIUM CARBONATE (TUMS) 500 MG (200 MG ELEMENTAL) PO (19:10)
[2024-10-27] MEDS: AMPICILLIN SODIUM 2 GM in SODIUM CHLORIDE 0.9% IV 100 ML 200 ML IVPB (20:27)
--- NOTE | 2024-10-27 21:53 | PM.OBPNLAB ---
Pain Control Date/time seen: 10/27/24 1430 fht 125, cat 1, progressing in labor, continue Pitocin.
--- NOTE | 2024-10-27 21:55 | PM.OBPNLAB ---
Pain Control Date/time seen: 10/27/24 21:55 Comments: FHT 145, Cat 2, patient pushing for near 2 hours, no change in station, large caput, OT presentation. She was informed of diagnosis of failure to descend. Discussed recommendation for section for failure to descend, risk of section discussed and risk of continuing to attempt vaginal delivery. Her questions were answered, she agrees to section.
[2024-10-27] MEDS: FAMOTIDINE 20 MG/2 ML VIAL IV PUSH (21:57)
[2024-10-27] MEDS: ceFAZolin 2 GM in SODIUM CHLORIDE 0.9% IV 50 ML 100 ML IVPB (21:57)
[2024-10-27] MEDS: ACETAMINOPHEN 500 MG TABLET 1000 MG PO (21:57)
[2024-10-27] MEDS: AZITHROMYCIN IV 500 MG in SODIUM CHLORIDE 0.9% IV 250 ML IVPB (21:57)
--- NOTE | 2024-10-27 21:59 | P.PCNOB_ITS ---
OB - Delivery Note Procedure Delivery date: 10/27/24 Pre-op diagnosis: Arrest of Decent Post-op Diagnosis: Same Delivery augmentation: Rupture of Membranes and Pitocin Delivery monitor: External FHT Procedure Performed: Primary Surgeon: Alfred Glover MD Anesthesia type: Epidural Description of Procedure/Findings: Patient presented to L and D with SROM. Cervix 1 cm. She had pitocin augmentation. She progressed to active labor. She dilated to 9 and started having cervical swelling. This did resolve with Tums and Benadryl and she progressed to complete. She pushed for near two hours with good effort. Caput present. Station unchanged from 1+. She was recommended for section for failure to descend. Findings: male ROT position, normal uterus fallopian tubes and ovaries After informed consent, risks and benefits of the procedure was discussed with the patient. The patient was taken to the operating room where she was placed in the dorsal lithotomy position with leftward tilt. After the prior placed epidural anesthesia was found to be adequate, she was then prepped and draped in the usual sterile fashion. A Pfannenstiel skin incision was made with a scalpel and carried through to the underlying layer of fascia. The fascia was then nicked in the midline, extending bilaterally. The fascia was dissected off the rectus muscles bluntly and sharply, superiorly and inferiorly. The rectus muscles were in the midline, and peritoneum was identified and entered bluntly. The pelvic organs were visualized. The bladder blade was then inserted. The vesicouterine peritoneum was identified and entered sharply with Metzenbaum scissors and extended bilaterally and then the bladder flap was created digitally. The low transverse uterine incision was then made with the scalpel and extended with bilateral index fingers in a crescent-shaped fashion. The head was delivered and the rest of the infant was delivered. The nose and mouth suctioned. The cord was clamped twice and cut. The was then handed off to the awaiting pediatric staff. The placenta was then delivered manually. The uterine cavity was sponge curretted. The uterus was then exteriorized. The uterine incision was then closed with 0 vicryl in a running locked fashion. x 2. Hemostasis noted. The uterus was then returned to the abdomen. Bilateral gutters were cleared off all clots and debris. The uterine incision was noted to be hemostatic. Interceed placed on uterine incision and vertically on front of uterus. The muscle bellies were inspected and noted to be hemostatic. The peritoneum was approximated with 3.0 vicryl. The subfascial layer was noted to be hemostatic, and the fascia was closed with 0 Vicryl in a running fashion. The subcutaneous layer was irrigated and then approximated with 3-0 Vicryl. The skin was closed with Ensorb norris. Skin dermabond applied at incision. All instruments, needle, and lap counts were correct x3. The patient was taken to the recovery room in stable condition. Specimen: No Estimated Blood Loss: 765 Drains: No Packing: No Pathology: None sent Complications: No immediate complications Condition: Stable Disposition: Floor [place] Baby Date of : 10/27/24 Time of : 22:25 Gestational Age by Date: 37 Infant gender: Male Weight (pounds): 8 Weight (ounces): 4 presentation: vertex position: Right Occiput Transverse Placenta delivery description: Manual Removal score one minute: 8 score five minutes: 9
--- NOTE | 2024-10-27 22:02 | PM.OBDSVD ---
DS: Admitting Diagnosis Admitting Diagnosis Spontaneous rupture of membranes. DS: Discharge Diagnosis Discharge Diagnosis (1) Spontaneous rupture of membranes: Status: Acute (2) Failure of descent in labor, delivered, current hospitalization: Code(s): O62.2 - Other uterine inertia Status: Acute OB - DS: Summary Hospital Course Hospital Course: She was admitted for SROM. She had pitocin augmentation. Labor significant for failure to descend for which she had a primary section. She did well post op. She had adequate pain control and was ambulating well. She was started on oral iron for asymptomatic post-op anemia. OB Procedures Intrapartum: Peripartum Data Delivery Method: Section Procedures: Procedures Operation Date: 10/27/24 22:00 <No data on this case meets the specified criteria> Time Spent with Patient Time attestation: Total time spent providing and/or coordinating discharge services: DS: Data Data Completed and Pending Labs on day of discharge: Labs from last 24 hours 10/27/24 03:30 WBC 9.9 RBC 4.40 Hgb 13.0 Hct 38.2 MCV 86.8 MCH 29.5 MCHC 34.0 RDW 13.3 Plt Count 231 MPV 10.7 H Immature Gran % (Auto) 1.0 H Neut % (Auto) 76.1 H Lymph % (Auto) 16.8 L [place] % (Auto) 6.0 Eos % (Auto) 0.0 Baso % (Auto) 0.1 L Lymph # (Auto) 1.66 [place] # (Auto) 0.6 Eos # (Auto) 0.0 Baso # (Auto) 0.0 Abs Immat Gran (auto) 0.10 H Absolute Neuts (auto) 7.5 H Absolute Nucleated RBC 0.000 Nucleated RBC % 0.0 Sodium 134 L Potassium 3.7 Chloride 107 Carbon Dioxide 20 L Anion Gap 7 BUN 5 L Creatinine 0.43 L Estim Creat Clear Calc 167 Estimated GFR > 60 Glucose 84 Calcium 9.0 Total Bilirubin 0.4 AST 22 ALT 14 Alkaline Phosphatase 152 H Total Protein 6.1 L Albumin 3.3 L Syphilis IgG/IgM Ab Non-reactive Blood Type O Negative Antibody Screen Positive Antibody Identification Passive Due to RH Imm Glob Antigen Identification Not Reportable LARA, IgG Interpret Not Performed LARA, Poly Interpret Neg LARA, Complement Interp Not Performed Discharge Plan Discharge Patient Language: [place] Island[place] Discharge Medications: No Action DHA 200 mg capsule PO Zyrtec 10 mg capsule 10 mg PO DAILY PRN (Reason: allergy symptoms) epinephrine [EpiPen 2-Semaj] 0.3 mg/0.3 mL auto-injector 0.3 mg IM ONCE Qty: 2 1RF Rx Instructions: as a single dose; may repeat once fluoxetine 20 mg capsule 20 mg PO DAILY Qty: 90 2RF Date of admission: 10/27/24 02:52 Primary Care Provider: Maday Jade Admitting Provider: Manohar Elias Attending physician on admission: Manohar Elias
[2024-10-28] VITALS (48 sets, daily range): BP systolic 109–137; BP diastolic 56–101; PULSE 69–169; RESP 15–20; TEMP 36.2–37.2; O2SAT 92–100
[2024-10-28] MEDS: OXYTOCIN 30 UNITS/NS 500 ML 30 UNITS/500 ML BAG 125 UNITS IV CONT
--- NOTE | 2024-10-28 01:51 | OBPPTRN ---
Patient transferred to post room #291 via w/c. Support person present. Oriented to unit, room, information board, rooming in, admission packet and security measures. Patient verbalizes understanding.
--- NOTE | 2024-10-28 01:52 | OBPPTRN ---
Patient transferred to post room #291 via bed at 0151. Support person present. Oriented to unit, room, information board, rooming in, admission packet and security measures. Patient verbalizes understanding.
[2024-10-28] MEDS: ACETAMINOPHEN 500 MG TABLET 1000 MG PO ×4 (02:43→21:03)
[2024-10-28] MEDS: KETOROLAC 15 MG/ML VIAL (*BKC) IV PUSH ×3 (02:43→14:57)
[2024-10-28] MEDS: SCOPOLAMINE 1 MG PATCH 1 PATCH TRANSDERM (02:46)
[2024-10-28] MEDS: DEXTROSE 5%/0.45% SOD CHL 1,000 ML 125 ML IV CONT (04:00)
[2024-10-28] MEDS: ceFAZolin 1 GM in SODIUM CHLORIDE 0.9% IV 50 ML 100 ML IVPB ×3 (05:26→21:03)
[2024-10-28 06:19] LABS: Hematocrit 28.2 % (37.0-47.0); Hemoglobin 9.3 g/dL (12.0-15.0); Immature Granulocyte Percent A 0.4 % (0-0.5); Lymphocytes Absolute Auto 1.49 K/mm3 (0.9-3.2); Mean Corpuscular HGB Conc 33.0 g/dl (32-36); Mean Corpuscular Hemoglobin 29.2 pg (26-34); Mean Corpuscular Volume 88.7 fl (80-100); Nucleated Red Blood Cells Absolute Auto 0.000 K/mm3 (0.0-0.012); Nucleated Red Blood Cells Perc 0.0 % (0.0-0.2); Platelet Count Result 191 k/mm3 (150-375); Red Blood Count 3.18 M/mm3 (4.2-5.4); White Blood Count 15.8 K/mm3 (4.5-10.0)
--- NOTE | 2024-10-28 08:22 | PM.OBPNVD ---
OB - PN: Subj Subjective Date/time seen: 10/28/24 08:22 Interval history: She has adequate pain control, she has not ambulated yet, positive flatus, no leg pain, mild swelling in hands, no leg pain. No hypovlemic symptoms. OB - PN: Obj Data Labs 10/28/24 06:13 10/27/24 03:30 Labs: Laboratory Results - last 24 hr 10/27/24 10/28/24 03:30 06:13 WBC 15.8 H RBC 3.18 L Hgb 9.3 L D Hct 28.2 L MCV 88.7 MCH 29.2 MCHC 33.0 RDW 13.6 Plt Count 191 MPV 10.6 H Immature Gran % (Auto) 0.4 Neut % (Auto) 83.8 H Lymph % (Auto) 9.4 L [place] % (Auto) 6.3 Eos % (Auto) 0.0 Baso % (Auto) 0.1 L Lymph # (Auto) 1.49 [place] # (Auto) 1.0 H Eos # (Auto) 0.0 Baso # (Auto) 0.0 Abs Immat Gran (auto) 0.07 H Absolute Neuts (auto) 13.2 H Absolute Nucleated RBC 0.000 Nucleated RBC % 0.0 Syphilis IgG/IgM Ab Non-reactive Blood Type O Negative Antibody Screen Negative Screen Negative Baby's Blood Type O pos Baby's LARA Negative Doses of RhIg Required 1 OB - PN A/P Assessment and Plan (1) Delivery by section: Status: Acute Assessment and Plan: POD1. Doing well. Mild post op anemia. Asymptomatic. Oral iron. Routine post op care. Time Spent With Patient Time: Total time spent is greater than 50% in coordination of care (as documented) at patient's floor/unit and/or counseling patient: Exam Const: General: comfortable and no acute distress Resp: Effort & Inspection: normal respiratory effort GI: Other: dressing clean and intact Neuro: General: patient oriented x3 Extrem: General: normal to inspection (trace edema bilat) and no calf tenderness Psych: Mental Status: mental status grossly normal
--- NOTE | 2024-10-28 08:31 | PC.NURSE ---
Introductions were made, then consulted with patient to assess needs related to . Mother led the conversation with her?plans to feed?her and the?experience so far. A nipple shield was introduced overnight by night RN due to being unable to maintain latch (flat nipples). Mother does need assistance with positioning and latching with the nipple shield. Encouraged understanding of the benefits of skin to skin, stimulating with massage touch, changing positions to encourage wakefulness, how to watch for early feeding cues, responsive feeding, feeding on demand (aiming for 8-12 times in 24 hours, about every 2-3 hours), milk production, building/maintaining a milk supply, duration of feeding, signs of adequate intake/output and how to record on the feeding sheet. Reviewed positioning and ear, shoulder, hip alignment, supporting the breast to facilitate a deep latch, asymmetrical latch, leading with the chin with a big, open, wide gape and body close to mother. latched optimally to the [right] breast in [football] position. Education given to the mother of how to visualize the suckling, swallows and how to listen for drinking at the breast (the ka sound). was [able] to maintain latch without pain to mother protecting the nipple with optimal positioning and latching. Reviewed good handwashing, cleaning the nipple shield and the appropriate way to apply and use as a tool. Discussed with mom the nipple shield precautions, possible complications associated with the risks and benefits. Reviewed practicing with a nipple shield, then without and how to protect the milk supply and production. Mom voiced understanding of the importance of hand expression, nipple stimulation and initiating a pumping schedule if infant continues to nurse with the shield. Mother voiced understanding of skin to skin, stimulating with massage touch, responsive feedings, hand expressed colostrum, talking to infant to encourage if it has been 2 -2.5 hours since the start of the last , to call if infant does not latch, or if there is discomfort with . Parents voiced understanding of information, demonstrated learning and will call if there is a request for assistance. Reported to the Primary RN.
[2024-10-28] MEDS: SIMETHICONE 80 MG TAB.CHEW PO ×3 (08:59→16:49)
[2024-10-28] MEDS: DOCUSATE SODIUM 100 MG CAPSULE PO ×2 (09:00→16:49)
[2024-10-28] MEDS: LANOLIN (LANSINOH) 7.5 GM CREAM 1 APPLIC TOPICAL (09:00)
[2024-10-28] MEDS: MULTIVIT/MIN/PREN/FOL AC/IRON TABLET 1 TAB PO (09:00)
--- NOTE | 2024-10-28 10:07 | WPDANLDPN2 ---
Anes-Prog Note L&D Date/Time: 10/28/24 10:07 Comfortable throughout: labor and section Neuraxial method: epidural Epidural/Spinal procedure site: clean & non-tender Neuro status: Neuro function grossly intact. Cardiovascular status: normal Respiratory status: normal Airway patency: baseline Mental status: baseline Post-Op hydration status: normal Vital Signs: Last Vital Signs Temp 97.2 F L 10/28/24 06:56 Pulse 70 10/28/24 06:56 Resp 19 10/28/24 06:56 BP 123/64 10/28/24 06:56 Pulse Ox 97 10/28/24 06:56 O2 Del Method Room Air 10/28/24 01:45 Pain score (VAS): 5 I/O: Intake & Output 10/27/24 10/28/24 10/28/24 23:59 07:59 15:59 Intake Total 0 400 Output Total 1215 500 Balance -1215 -100 Post-procedural complaints: pruritis mild, no treatment Patient feedback: Patient satisfied with anesthetic care.
--- NOTE | 2024-10-28 10:08 | WPDANLDNPN2 ---
Anes-Prog Note L&D-Neuraxial Date/Time: 10/28/24 10:08 Neuraxial medications: epidural PF morphine Opiod-related complaints: pruritis mild, no treatment Patient feedback: Patient satisfied with post-operative pain management.
--- NOTE | 2024-10-28 16:09 | PC.NURSE ---
0715: Introductions were made, then consulted with patient to assess needs related to . Mother led the conversation with her?plans to feed?her infant and the?experience so far. Mother is having difficulty waking for feeds. is currently on blood sugars due to LGA and has received gel and supplementation. She was given a nipple shield overnight by night RN. Proper education was provided regarding the nipple shield. This RN was able to assist mother in latching infant with nipple shield in place on the right breast in football position. Mother denies pain. Primary RN notified. 1115:Called to patient bedside to assist with latching . was swaddled upon entering room. Educated parents on waking infant for feedings. Once was awake, he was placed on the breast with nipple shield in place. Infant would not latch and would let the shield sit in his mouth. He was not rooting or interested at this time. Attempt was ~ 30 minutes in duration. Mother offered a bottle and will attempt to feed at the breast with next feeding.
[2024-10-28] MEDS: oxyCODONE HCL (*CRX) 5 MG TAB IR PO (16:50)
[2024-10-28] MEDS: IBUPROFEN 600 MG TABLET PO (21:02)
[2024-10-28] MEDS: RHO(D) IMMUNE GLOBULIN 300 MCG/2 ML SYRINGE IM (21:05)
[2024-10-29] MEDS: IBUPROFEN 600 MG TABLET PO ×4 (03:03→20:14)
[2024-10-29] MEDS: ACETAMINOPHEN 500 MG TABLET 1000 MG PO ×4 (03:03→20:14)
--- NOTE | 2024-10-29 06:44 | P.PNOB_ITS ---
OB - PN: Subj Subjective Date/time seen: 10/29/24 06:44 Interval history: She has adequate pain control, has ambulated without problems, lochia decreasing, no leg pain. OB - PN: Obj Data Labs 10/28/24 06:13 10/27/24 03:30 Labs: Laboratory Results - last 24 hr 10/28/24 06:13 Blood Type O Negative Antibody Screen Negative Screen Negative Baby's Blood Type O pos Baby's LARA Negative Doses of RhIg Required 1 OB - PN A/P Assessment and Plan (1) Delivery by section: Status: Acute Assessment and Plan: POD2. Doing well. Plan Plan: routine care Time Spent With Patient Time: Total time spent is greater than 50% in coordination of care (as documented) at patient's floor/unit and/or counseling patient: Exam 2 Const: General: comfortable and no acute distress Resp: Effort & Inspection: normal respiratory effort GI: Other: dressing clean dry intact Neuro: General: patient oriented x3 Extrem: General: normal to inspection (1+ edema bilat) and no calf tenderness Psych: Mental Status: mental status grossly normal
[2024-10-29 08:30] VITALS: BP 110/68; PULSE 93; RESP 20; TEMP 36.6; O2SAT 100
[2024-10-29] MEDS: DOCUSATE SODIUM 100 MG CAPSULE PO ×2 (08:38→16:38)
[2024-10-29] MEDS: MULTIVIT/MIN/PREN/FOL AC/IRON TABLET 1 TAB PO (08:38)
[2024-10-29] MEDS: SIMETHICONE 80 MG TAB.CHEW PO ×3 (08:38→16:38)
[2024-10-29] MEDS: LORATADINE 10 MG TABLET PO (20:14)
[2024-10-29] MEDS: diphenhydrAMINE HCl CAP 25 MG CAPSULE (20:14)
[2024-10-29] MEDS: HYDROCORTISONE 2.5% CREAM 30 GM TUBE 1 APPLIC (20:14)
[2024-10-29 20:32] VITALS: BP 130/67; PULSE 86; RESP 14; TEMP 36.8; O2SAT 100
[2024-10-29] MEDS: HYDROCORTISONE 1% 30 GM CREAM 1 APPLIC TOPICAL (21:31)
--- NOTE | 2024-10-29 21:32 | PC.NURSE ---
2000- Pt with generalized flat, red, itchy rash, states she thinks it is from the linen. This RN called Dr. Glover-order recieved for benadryl 25mg cap q 12 PRN, Zyrtec 10mg tab now, Hydrocortisone cream topical for itch.
[2024-10-30] MEDS: ACETAMINOPHEN 500 MG TABLET 1000 MG PO ×3 (02:31→14:45)
[2024-10-30] MEDS: IBUPROFEN 600 MG TABLET PO ×3 (02:31→14:45)
[2024-10-30 07:15] VITALS: BP 120/70; PULSE 61; RESP 18; TEMP 36.3; O2SAT 99
[2024-10-30] MEDS: DOCUSATE SODIUM 100 MG CAPSULE PO (08:30)
[2024-10-30] MEDS: SIMETHICONE 80 MG TAB.CHEW PO (08:30)
[2024-10-30] MEDS: LORATADINE 10 MG TABLET PO (08:30)
[2024-10-30] MEDS: MULTIVIT/MIN/PREN/FOL AC/IRON TABLET 1 TAB PO (08:30)
--- NOTE | 2024-10-30 08:30 | PC.NURSE ---
Met with patient to assess and discuss needs related to feeding. Mother states it is her intention to [exclusively breastfeed]. Baby is currently on the [id number] feeding plan. He was level 2 initially with glucose issues. Encouraged mother to breastfeed 8-12 times in 24 hours (approximately every 2-3 hours), watching for early feeding cues. If is sleepy, unwrap and place baby skin to skin. Discussed signs that is effectively , i.e. sufficient voids and stools, jaundice within normal limits, <10% weight loss from . Mother educated on milk production, supply and demand, and expectations for in the immediate period. Encouraged feeding on demand and feeding durations of 15 minutes and then moving to pumping and bottle feeding. Discussed breast/nipple care with good hand hygiene, signs of a correct latch, and documenting feedings on the feeding sheet. Observed mother latching to the [left] breast in [football] position with the nipple shield. Infant [was] able to maintain an appropriate latch. Mother [declines] nipple pain/discomfort [throughout feeding]. Encouraged mother to keep infant awake and nursing at the breast for about 15 minutes if able. Reviewed correct use of nipple shield and ways to initiate weaning when ready. Discussed use of expressed breast milk by placing drops of milk in baby?s mouth with a clean finger, syringe feeding, bottle feeding, or mixing colostrum with a small volume of formula and feeding with a bottle. RN at bedside for entire feeding/pumping session. Mother instructed to call for assistance if will not feed every 3 hours, if there is discomfort with , or if mother has any other questions or concerns. resources provided including the Mom and Baby Guide and name/number on communication board. Mother verbalized understanding. Updated patient?s primary RN with education provided.? Reviewed standard discharge information with patient including monitoring infant for required output, transition of stools, feeding 8-12 times every 24 hours, milk production, and follow up at [facility] and with mental health director in the first week of life. Parents are encouraged to take the feeding log and continue to track feedings and output for the first week . Offered outpatient resources with Services at [facility]. Patient has the Mom/Baby Guide for further education and reference for common concerns, phone numbers, and guidance on when to call the doctor. A feeding plan was added to the ?s discharge plan. Patient states that she has no further questions or concerns regarding .???
--- NOTE | 2024-10-30 08:58 | P.PNOB_ITS ---
OB - PN: Subj Subjective Date/time seen: 10/30/24 08:58 Narrative: Pain OK. Tolerating diet. Would like circumcision for son. Would like to go home. OB - PN: Obj Data Labs 10/28/24 06:13 10/27/24 03:30 Labs: Laboratory Results - last 24 hr 10/28/24 06:13 Blood Type O Negative Antibody Screen Negative Screen Negative Baby's Blood Type O pos Baby's LARA Negative Doses of RhIg Required 1 OB - PN A/P Plan day: 3 Comments: A: POD#3, doing well. P: Home to f/u 4 weeks. Reviewed circ. Exam 2 Narrative: AVSS ABD soft, nontender, fundus firm. Bandage in place, clean and dry. EXT nontender
--- NOTE | 2024-10-30 09:00 | P.DS_ITS ---
DS: Admitting Diagnosis Discharge Date 10/30/24 Admitting Diagnosis IUP at term SROM DS: Discharge Diagnosis Discharge Diagnosis (1) delivery delivered: Code(s): O82 - Encounter for delivery without indication Status: Acute OB - DS: Summary Hospital Course Hospital Course: She was admitted for SROM. She had pitocin augmentation. Labor significant for failure to descend for which she had a primary section. She did well post op. She had adequate pain control and was ambulating well. She was started on oral iron for asymptomatic post-op anemia. OB Procedures : NST OB Procedures Intrapartum: OB Procedures: : None Peripartum Data Procedures: Procedures Operation Date: 10/27/24 22:00 Actual Procedure Side Surgeon p Section Alfred Glover MD Time Spent with Patient Time attestation: Total time spent providing and/or coordinating discharge services: DS: Data Data Completed and Pending Labs on day of discharge: Labs from last 24 hours 10/28/24 06:13 Blood Type O Negative Antibody Screen Negative Screen Negative Baby's Blood Type O pos Baby's LARA Negative Doses of RhIg Required 1 Discharge Plan Discharge Attending physician on discharge: Manohar Elias Consulting providers: Alfred Glover; Beckie Steiner; Chilango Fine Jr. Discharging Clinician: Manohar Elias Patient Disposition: Home Activity: may shower and pelvic rest Diet: regular Wound Care Instructions: follow printed instructions Discharge Instructions: Education: Mom and Baby Guide Given to: Mother Follow-Up: Call your delivering provider's office for an appointment to be seen in: 4 Weeks, or as directed by OB provider. Mom and baby should come to the [facility] for the follow-up appointment. Appointment Date/Time: October 31, 2024 at 9:00 am What to expect at your follow-up visit: Blood Pressure Check Physical Assessment Call [phone] if you are unable to keep your appointment time. BREAST CARE: * Wear a snug supportive bra. * For engorgement discomfort: Breast Feeding: * Apply warm moist washcloths * Express milk as needed to relieve engorgement * Wear loose clothing Bottle Feeding: * May apply ice packs * For sore nipples: * Identify correct latch-on * Apply warm moist washcloths before and after nursing * Air dry nipples after nursing * May apply Lansinoh cream to nipples ABDOMINAL INCISION: (if applicable) * Allow incision to air dry * Do NOT use lotions for powders on your incision * When showering, allow soap and water to run over the incision, but do not wash incision * Until bleeding stops, use your guillermo bottle after urinating * Change your pad frequently throughout the day * No tub baths until seen by your physician - You may shower ACTIVITY: * Rest as much as possible. * Do not exercise or lift anything heavier than your baby (such as laundry or other children.) * Avoid stairs or driving as much as possible. * Do not put anything into the vagina. No douching, tampons, or sexual activity until seen by physician. NOTIFY PHYSICIAN IF YOU HAVE ANY QUESTIONS OR IF ANY OF THE FOLLOWING SYMPTOMS OCCUR: * If your episiotomy or incision becomes red, swollen, or more painful than what you have experienced in the hospital. * If your vaginal bleeding becomes foul smelling. * If your vaginal bleeding becomes more heavy than a period or if your bleeding changes from pink to bright red. However, you may pass an occasional walnut- sized clot once or twice for the first week . * If you experience a sharp, shooting pain in you calves. * If you discover a hard, reddened area on your breast or if you experience flu- like symptoms. DIET: * Eat regular, well-balanced meals. * Drink plenty of fluids daily. If , drink to thirst.Call or return if temperature above 100.4? F, increased abdominal pain, increased vaginal bleeding or any new problems. Patient Language: Georgian Stand Alone Forms: General Discharge Information Follow-up/Referrals: Manohar Elias MD [Physician, [employer]] - 4 Weeks Discharge Medications: New ibuprofen 600 mg tablet 600 mg PO Q6H PRN (Reason: cramps) Qty: 30 0RF ferrous sulfate 325 mg (65 mg iron) tablet 325 mg PO DAILY Qty: 30 0RF oxycodone-acetaminophen [Percocet] 5-325 mg tablet 1 - 2 tablet PO Q6H PRN (Reason: pain) Qty: 30 0RF Continued DHA 200 mg capsule PO Zyrtec 10 mg capsule 10 mg PO DAILY PRN (Reason: allergy symptoms) epinephrine [EpiPen 2-Semaj] 0.3 mg/0.3 mL auto-injector 0.3 mg IM ONCE Qty: 2 1RF Rx Instructions: as a single dose; may repeat once No Action fluoxetine 40 mg capsule 40 mg PO DAILY Qty: 30 0RF alprazolam [Xanax] 0.25 mg tablet 0.25 mg PO BID PRN (Reason: anxiety) Qty: 20 0RF Rx Instructions: Use sparingly for breakthrough anxiety Date of admission: 10/27/24 02:52 Primary Care Provider: Maday Jade Admitting Provider: Manohar Elias Attending physician on admission: Manohar Elias Condition: Stable
[2024-10-30] MEDS: HYDROCORTISONE 1% 30 GM CREAM 1 APPLIC TOPICAL (14:59)
[2024-10-31 09:50] VITALS: BP 134/75; PULSE 73; RESP 18; TEMP 36.9; O2SAT 100
--- NOTE | 2024-10-31 10:00 | PC.NURSE ---
Follow up RN requests consult for this patient. Baby was circumcised yesterday prior to discharge and hasn't been latching since they have been at home. Baby is due to eat now but is sleepy. Mom tried to latch in football hold with the nipple shield but baby did not give any effort to latch. Dad remembered that they had given an ounce of breast milk at 0830 so baby is probably not hungry yet. Reviewed in detail with parents how to go about each feeding, offering the breast and then moving to pumping and bottle feeding. Tips given on ways to entice baby to latch, how to calm baby and refocus on feedings, and permission to try different things to find what works. Mom likes schedules and time tables so we reviewed the flexibility needed when feeding a . Dad is present and very supportive. Mom is encouraged to contact the office or to ask for assistance tomorrow when they come back for a bili check. She can also call and we can review her feeding plans any time she needs. Patient is instructed to continue with the feeding plan as they were before discharge. Patient left stating that she is feeling more confident and relaxed. She verbalizes that she will reach out to us if she needs any other assistance.
== END 2024-10-30 16:43 | disposition home or self-care (01) | DRG 788 ==
LOC: ANHLDR 05:13 → ANHOB2 10-28 01:57
PROVIDERS: Obstetrics & Gynecology; Admitting Provider Obstetrics & Gynecology; PCP Family Medicine; Visit Provider Obstetrics & Gynecology
PROC: 10D00Z1 Extraction of Products of Conception, Low, Open Approach (ICD-10-PCS; CPT 59514; principal; 2024-10-27 22:00)
DX: O42.02 Full-term premature rupture of membranes, onset of labor within 24 hours of rupture (principal); O62.1 Secondary uterine inertia; Z37.0 Single live birth; Z3A.37 37 weeks gestation of pregnancy; D64.89 Other specified anemias; O90.81 Anemia of the puerperium
CPT/HCPCS: 36415; 59025; 80053; 81001; 82570; 84156; 84550; 85025; 85461; 86593; 86850; 86880; 86900; 86901; 86902; 90384; 99199; J0690; A9270; J0290; J0456; J1200; J1885; J2004; J2274; J2371; J2405; J2590; J2790; J2795; J3010; J7050; J7120